=== PATIENT | female | born 1975 | race Caucasian/White ===

== ENCOUNTER 2016-09-21 01:21 | Emergency (ER) | payer MEDICAID ==
[~2016-09-21] VITALS: Ht 162.6 cm; Wt 72.6 kg
[2016-09-21 02:51] VITALS: BP 148/98
== END 2016-09-21 02:51 | disposition home or self-care (01) ==
LOC: ER 01:23
DX: S09.90XA Unspecified injury of head, initial encounter (principal); M25.551 Pain in right hip; M25.571 Pain in right ankle and joints of right foot; R51 Headache; V29.69XA Unspecified motorcycle rider injured in collision with other motor vehicles in traffic accident, initial encounter; Y93.89 Activity, other specified; Y92.488 Other paved roadways as the place of occurrence of the external cause; Y99.9 Unspecified external cause status
CPT/HCPCS: 70450; 73080; 73501; 73610; 99284; A4606; Z7610